=== PATIENT | female | born 1985 | race Caucasian/White ===

== ENCOUNTER 2023-06-06 15:40 | Outpatient (CLI) | payer BC, SELFPAY ==
--- NOTE | 2023-06-06 16:00 | CRLHL7_ITS ---
For Patients: As a result of the Century Cures Act, medical imaging exams and procedure reports are released immediately into your electronic medical record. You may view this report before your referring provider. If you have questions, please contact your health care provider. Indication: Sinusitis Technique: Noncontrast CT of the paranasal sinuses. Coronal and sagittal reformats. Bone and soft tissue algorithms. Comparison: No relevant comparison studies available at this institution. Findings: There is mild lobulated mucosal thickening along the inferior maxillary antrums bilaterally. Bilateral Becca cells slightly narrow the infundibula bilaterally, although appearing grossly patent. Small mucous retention cyst/polyp is present within the left sphenoid sinus. Minor mucosal thickening at the right anterior ethmoid air cells. Otherwise clear sinonasal cavities bilaterally. No air-fluid level. Patent ostiomeatal units. Minor rightward nasal septal deviation (2 mm). Small left middle priya lamella. No paradoxical turbinates. No aggressive osseous lesions. No suspicious periapical lucencies. Included orbits and intracranial structures are unremarkable for technique. IMPRESSION: 1. Mild lobulated mucosal thickening along the inferior maxillary antrums bilaterally, with mild narrowing of the bilateral infundibula from Becca cells. 2. No air-fluid level. Please note that all CT scans at this facility use dose modulation, iterative reconstruction, and/or weight-based dosing when appropriate to reduce radiation dose to as low as reasonably achievable. Dictated by Jackie Dickson MD @ 06/07/2023 11:06:06 AM (Electronically Signed)
== END 2023-06-06 15:41 | disposition home or self-care (01) ==
LOC: CT 15:41
PROVIDERS: Visit Provider Otolaryngology
DX: J32.9 Chronic sinusitis, unspecified (principal); J32.0 Chronic maxillary sinusitis
CPT/HCPCS: 70486

== ENCOUNTER 2023-09-13 09:41 | Day surgery (SDC) | payer BC, SELFPAY ==
[2023-09-13] VITALS (13 sets, daily range): BP systolic 109–137; BP diastolic 55–85; PULSE 75–112; RESP 16–20; TEMP 36.2–36.9; O2SAT 93–100; BMI 29.3
[2023-09-13 10:28] LABS: Ur HCG Qualitative* Negative (Negative)
[2023-09-13] MEDS: OXYMETAZOLINE 0.05% NASAL SPRAY 2 SPRAY NOSTRIL-B (10:33)
[2023-09-13] MEDS: SODIUM CHLORIDE 0.9 % (FLUSH) 10 ML SYRINGE IVF (10:55)
[2023-09-13] MEDS: LACTATED RINGERS 1000 ML 1,000 ML 100 ML IV (10:55)
[2023-09-13] MEDS: COCAINE HCL 4 % 4 ML SOLUTION NOSTRIL-B (12:10)
[2023-09-13] MEDS: AYR SALINE NASAL GEL 1 APPLIC NOSTRIL-B (12:10)
[2023-09-13] MEDS: BUPIVACAINE 0.5%/EPINEPHRINE 0.9 MG (30.9 ML) INJECTION (12:15)
[2023-09-13] MEDS: MUPIROCIN 1 GM PACKET 1 APPLIC TOPICAL (12:20)
--- NOTE | 2023-09-13 12:43 | W.PM.ENTPROC ---
Procedure Note Date of procedure: 09/13/23 Procedure: Preoperative diagnosis nasal obstruction, nasal headache, left middle turbinate priya bullosa, deviated septum, inferior turbinate hypertrophy Postoperative diagnosis same Procedure nasal septoplasty, endoscopic partial resection left middle turbinate priya bullosa, submucous partial resection inferior turbinates bilateral Under general endotracheal anesthesia patient was prepped and draped usual fashion nose injected decongested. Stab incision was made in the anterior right inferior turbinate a tunnel created with a Antwan dissector. The priya bone was outfractured. A conservative anterior submucous resection was performed. The Coblation was used to ablate polypoid tissue in the posterior head of the right inferior turbinate and also for hemostasis. This was repeated on the left side in identical fashion including the polypoid tissue in the posterior head. A 15 blade was used to make an incision moved right side area 3 septal mucosa anterior to the superior deflection. The mucosa was elevated on the right side of the deflection. The Antwan dissector was used to cut through the cartilage and elevate the mucosa on the opposite side. Turbinate scissors was used to remove the deflected portion of septal bone and cartilage. It was straightened and a large piece was returned to the intraseptal space. The right middle turbinate was crushed with the Navjot forceps. Remainder procedure was done with the available assistance of a 0 degree endoscope 0 degree endoscope however direct visualization was adequate. A 15 blade was used to incise the lateral aspect of the left middle turbinate the mucosa was slightly elevated the bone infractured and the turbinate was crushed with the Najvot forceps. Male Merocel packs coated in Bactroban were placed in the middle meatus bilaterally. The patient procedure well was taken recovery in satisfactory condition. Blood loss during procedure less than 10 mL. Surgeon: Mick Bosch MD
--- NOTE | 2023-09-13 12:45 | W.ANESCHARGE ---
Anesthesia Charges Start Date/Time Anesthesia Start Date: 09/13/23 Anesthesia Start Time: 12:06 Stop Date/Time Anesthesia Stop Date: 09/13/23 Anesthesia Stop Time: 12:44
--- NOTE | 2023-09-13 12:48 | W.ANESCHARGE ---
Anesthesia Charges Start Date/Time Anesthesia Start Date: 09/13/23 Anesthesia Start Time: 12:06 Stop Date/Time Anesthesia Stop Date: 09/13/23 Anesthesia Stop Time: 12:44
--- NOTE | 2023-09-13 13:58 | SUR.PHASEII ---
Patient O2 sats dip to 80% RA. Parasitologist in to room and encouraged patient to cough. Sats increased to 99%. Patient states her throat feels tight. Patient's throat within normal limits on assessment. Patient encouraged to drink warm and cool liquids. We discussed the nature of intubation and a sore and scratchy throat is common after general anesthesia. Bilateral posterior lung sounds are within normal limits. Garett MACHINIST [employer] notified of patient. Garett in to room to see patient. No new orders.
--- NOTE | 2023-09-13 14:38 | SUR.PHASEII ---
Patient provided incentive spirometer and instructed on proper use. Patient verbalized understanding. Patient encouraged to use it every few minutes for the next 15 minutes.
== END 2023-09-13 15:02 | disposition home or self-care (01) ==
LOC: OR 09:42
PROVIDERS: PCP Family Medicine; Visit Provider Otolaryngology
PROC: (CPT 31231; principal; 2023-09-13 11:00)
DX: J34.2 Deviated nasal septum (principal); J34.3 Hypertrophy of nasal turbinates; R51.9 Headache, unspecified; J34.89 Other specified disorders of nose and nasal sinuses
CPT/HCPCS: 30520; 30140; 31240; 00160; 81025; A9270; J0330; J1100; J1200; J2405; J2704; J3010; J7120